=== PATIENT | male | born 1935 | race Caucasian/White ===

== ENCOUNTER 2023-09-10 09:12 | Inpatient (IN) | payer OTHER ==
[2023-09-10] VITALS (7 sets, daily range): BP systolic 146; BP diastolic 54; PULSE 71–90; RESP 15–19; TEMP 98; O2SAT 92–100
[~2023-09-10] VITALS: Ht 180.3 cm; Wt 88.1 kg
[2023-09-10] MEDS: SODIUM CHLORIDE 0.9% 1,000 ML IV ONE (11:16)
[2023-09-10 11:40] LABS: INR 1.07 (0.9-1.15); Partial Thromboplastin Time 26.8 SEC (24.5-34.5); Prothrombin Time 11.3 sec (9.3-11.8)
[2023-09-10 11:46] LABS: Alanine Aminotransferase 20 U/L (7-40); Albumin 4.6 g/dL (3.2-4.8); Alkaline Phosphatase 47 U/L (46-116); Anion Gap 6 (5-15); Aspartate Aminotransferase 25 U/L (13-40); BUN/Creatinine Ratio 18.8 (10.0-20.0); Bilirubin, Total 0.8 mg/dL (0.2-1.0); Blood Urea Nitrogen 21 mg/dL (9-23); Calcium 10.3 mg/dL (8.5-10.1); Carbon Dioxide 27 mmol/L (20-30); Chloride 109 mmol/L (98-107); Glucose 91 mg/dL (74-106); Magnesium 1.9 mg/dL (1.6-2.6); Potassium 4.8 mmol/L (3.5-5.1); Sodium 142 mmol/L (136-145); Total Protein 6.9 g/dL (5.7-8.2)
[2023-09-10 11:59] LABS: Basophils # (auto) 0 10 ^3/uL (0-0.2); Basophils % (auto) 0.5 % (0.0-2.0); Eosinophils # (auto) 0.2 10 ^3/uL (0-0.8); Eosinophils % (auto) 3.5 % (0.0-7.0); Hematocrit 45.4 % (41.0-53.0); Hemoglobin 14.9 g/dL (13.5-17.5); Lymphocytes % (auto) 15.2 % (10.0-50.0); Mean Corpuscular Hemoglobin 28.5 pg (28.0-32.0); Mean Corpuscular Hgb Conc. 32.8 g/dL (32.0-36.0); Mean Corpuscular Volume 86.9 fL (80.0-100.0); Monocytes # (auto) 0.5 10 ^3/uL (0-1.3); Neutrophils % (auto) 73.8 % (37.0-80.0); Nucleated Red Blood Cells % 0.2 %; Red Blood Cells 5.22 10^6/uL (4.5-5.90); Red Cell Distribution Width 15.4 % (11.8-14.3); White Blood Cell 6.8 10^3/uL (4.4-10.8)
[2023-09-10] MEDS: ENOXAPARIN SOD 60 MG/0.6 ML SYRINGE SC ONE (13:26)
[2023-09-10] MEDS ORDERED: ALBU108A5 INH (15:43)
[2023-09-10] MEDS ORDERED: NITROGLYCERIN 0.4 MG SL TAB SL PRN (15:45)
[2023-09-10] MEDS ORDERED: ALBUTEROL SULF 2.5 MG/0.5ML(0.5%) NEB SOLN NEB PRN (15:45)
[2023-09-10] MEDS ORDERED: MORPHINE SULFATE INJ 2 MG/ml SYRG IV PRN (15:45)
[2023-09-10] MEDS ORDERED: ACETAMINOPHEN 325 MG TAB PO PRN (15:45)
[2023-09-10] MEDS: FUROSEMIDE 20 MG/2 ML VIAL IV ONE (15:46)
[2023-09-10 16:21] LABS: Triglycerides 76 mg/dL (< 150)
[2023-09-10 16:22] LABS: LDL Cholesterol 76 mg/dL (< 100)
[2023-09-10 16:23] LABS: Cholesterol 141 mg/dL (< 200); HDL Cholesterol 54 mg/dL (40-59)
[2023-09-10 16:59] LABS: Urine Bacteria None Seen /hpf (None Seen)
[2023-09-10 17:31] LABS: Urine Blood Negative /uL (Negative); Urine Clarity Clear (Clear); Urine Color Light-Yellow (Yellow); Urine Protein, UAD Negative (Negative); Urine Specific Gravity 1.015 (1.001-1.035); Urine Urobilinogen Normal (Negative); Urine WBC <1 /hpf (0 - 3)
[2023-09-10] MEDS: IPRATROPIUM BROM 0.5 MG/2.5ML INH SOL NEB SCH (17:38)
[2023-09-10] MEDS: ALBUTEROL SULF 2.5 MG/0.5ML(0.5%) NEB SOLN NEB SCH (17:38)
[2023-09-10] MEDS: ENOXAPARIN SOD 60 MG/0.6 ML SYRINGE SC SCH (22:11)
[2023-09-11] VITALS (21 sets, daily range): BP systolic 114–157; BP diastolic 59–76; PULSE 75–98; RESP 14–20; TEMP 97.3–98.1; O2SAT 92–100
[2023-09-11 05:30] LABS: Basophils # (auto) 0.1 10 ^3/uL (0-0.2); Basophils % (auto) 0.8 % (0.0-2.0); Eosinophils # (auto) 0.4 10 ^3/uL (0-0.8); Eosinophils % (auto) 6.6 % (0.0-7.0); Hematocrit 42.7 % (41.0-53.0); Hemoglobin 14.3 g/dL (13.5-17.5); Lymphocytes # (auto) 1.4 10 ^3/uL (0.4-5.4); Lymphocytes % (auto) 23.4 % (10.0-50.0); Mean Corpuscular Hemoglobin 28.9 pg (28.0-32.0); Mean Corpuscular Hgb Conc. 33.4 g/dL (32.0-36.0); Mean Corpuscular Volume 86.4 fL (80.0-100.0); Monocytes # (auto) 0.6 10 ^3/uL (0-1.3); Monocytes % (auto) 9.2 % (0.0-12.0); Neutrophils # (auto) 3.6 10 ^3/uL (1.6-8.6); Red Blood Cells 4.94 10^6/uL (4.5-5.90); Red Cell Distribution Width 15.4 % (11.8-14.3); White Blood Cell 6.1 10^3/uL (4.4-10.8)
[2023-09-11 05:54] LABS: Alanine Aminotransferase 14 U/L (7-40); Albumin 3.7 g/dL (3.2-4.8); Alkaline Phosphatase 39 U/L (46-116); Anion Gap 10 (5-15); Aspartate Aminotransferase 22 U/L (13-40); BUN/Creatinine Ratio 12.6 (10.0-20.0); Blood Urea Nitrogen 13 mg/dL (9-23); Carbon Dioxide 22 mmol/L (20-30); Chloride 110 mmol/L (98-107); Glucose 87 mg/dL (74-106); Potassium 3.9 mmol/L (3.5-5.1); Sodium 142 mmol/L (136-145)
[2023-09-11 05:55] LABS: Total Protein 6.1 g/dL (5.7-8.2)
[2023-09-11] MEDS ORDERED: FUROSEMIDE 20 MG/2 ML VIAL IV SCH (10:00)
[2023-09-11] MEDS: FUROSEMIDE 20 MG/2 ML VIAL IV SCH (10:42)
[2023-09-11] MEDS: SODIUM CHLORIDE 0.9% 1,000 ML IV SCH (15:22)
[2023-09-11] MEDS ORDERED: APIX5TAB4 PO (21:37)
[2023-09-12] VITALS (19 sets, daily range): BP systolic 106–134; BP diastolic 54–81; PULSE 73–96; RESP 14–21; TEMP 98.1–98.7; O2SAT 92–100
[2023-09-12] MEDS: FUROSEMIDE 40 MG/4 ML VIAL IV SCH (09:07)
[2023-09-12] MEDS: PNEUMOCOCCAL VACC POLYS 25 MCG/0.5 ML VIAL IM ONE (09:26)
[2023-09-12 09:34] LABS: Basophils # (auto) 0 10 ^3/uL (0-0.2); Basophils % (auto) 0.5 % (0.0-2.0); Eosinophils # (auto) 0.4 10 ^3/uL (0-0.8); Eosinophils % (auto) 5.7 % (0.0-7.0); Hemoglobin 14.5 g/dL (13.5-17.5); Lymphocytes % (auto) 15.2 % (10.0-50.0); Mean Corpuscular Hemoglobin 28.4 pg (28.0-32.0); Mean Corpuscular Hgb Conc. 32.8 g/dL (32.0-36.0); Mean Corpuscular Volume 86.6 fL (80.0-100.0); Monocytes # (auto) 0.5 10 ^3/uL (0-1.3); Monocytes % (auto) 8.5 % (0.0-12.0); Neutrophils # (auto) 4.4 10 ^3/uL (1.6-8.6); Neutrophils % (auto) 70.1 % (37.0-80.0); Nucleated Red Blood Cells % 0.1 %; Red Blood Cells 5.09 10^6/uL (4.5-5.90); Red Cell Distribution Width 15.5 % (11.8-14.3); White Blood Cell 6.3 10^3/uL (4.4-10.8)
[2023-09-12 10:26] LABS: Alanine Aminotransferase 14 U/L (7-40); Albumin 4.3 g/dL (3.2-4.8); Alkaline Phosphatase 43 U/L (46-116); Anion Gap 8 (5-15); Aspartate Aminotransferase 20 U/L (13-40); BUN/Creatinine Ratio 13.4 (10.0-20.0); Blood Urea Nitrogen 16 mg/dL (9-23); Calcium 9.9 mg/dL (8.5-10.1); Carbon Dioxide 26 mmol/L (20-30); Chloride 106 mmol/L (98-107); Glucose 117 mg/dL (74-106); Potassium 3.9 mmol/L (3.5-5.1); Sodium 140 mmol/L (136-145)
[2023-09-12 10:27] LABS: Total Protein 6.6 g/dL (5.7-8.2)
[2023-09-13] VITALS (15 sets, daily range): BP systolic 103–132; BP diastolic 50–65; PULSE 76–91; RESP 17–20; TEMP 97.3–98.7; O2SAT 93–100
[2023-09-13] MEDS: IPRATROPIUM BROM 0.5 MG/2.5ML INH SOL NEB SCH (05:50)
[2023-09-13] MEDS: ALBUTEROL SULF 2.5 MG/0.5ML(0.5%) NEB SOLN NEB SCH (05:51)
[2023-09-13] MEDS: IOHEXOL 350 MG/ML 100ML IJ ONE (06:49)
[2023-09-13] MEDS ORDERED: ATOR-507 PO (14:21)
[2023-09-13] MEDS ORDERED: FURO1TAB33 PO (14:22)
[2023-09-13] MEDS ORDERED: CARV3.1240 PO (14:23)
== END 2023-09-13 17:17 | disposition home or self-care (01) | DRG 299 ==
LOC: ER 09:12 → TELE 15:42 → TELE-WESTW 22:04
PROVIDERS: ADMIT Nurse Practitioner Family; ATTEND Student in an Organized Health Care Education/Training Program
DX: I82.412 Acute embolism and thrombosis of left femoral vein (principal); I50.23 Acute on chronic systolic (congestive) heart failure; I11.0 Hypertensive heart disease with heart failure; F03.90 Unspecified dementia, unspecified severity, without behavioral disturbance, psychotic disturbance, mood disturbance, and anxiety; E11.9 Type 2 diabetes mellitus without complications; J44.9 Chronic obstructive pulmonary disease, unspecified; I27.20 Pulmonary hypertension, unspecified; I49.3 Ventricular premature depolarization; Z85.038 Personal history of other malignant neoplasm of large intestine; Z93.3 Colostomy status; Z99.81 Dependence on supplemental oxygen; Z95.828 Presence of other vascular implants and grafts
CPT/HCPCS: 36415; 71046; 71260; 74177; 76604; 80053; 80061; 81001; 83735; 83880; 84443; 84484; 85025; 85379; 85610; 85730; 93005; 93306; 93971; 94640; 96361; 96372; 96374; G0378